=== PATIENT | female | born 1945 | race Caucasian/White ===

== ENCOUNTER → 2017-03-08 | Outpatient (CLI) | payer OTHER ==
[~2017-03-08] MED LIST: AMBEREN; ASPIRIN325; FISHOIL; GABAPENTIN; LEVOTHROID75 MCG PO; NORCO 5-325 TA1 EACH PO; ZOFRAN 4 MG ORAL4 M1 DIS
== END ==
LOC: RAD 07:34
DX: Z12.31 Encounter for screening mammogram for malignant neoplasm of breast (principal)